=== PATIENT | male | born 1980 | race African-American/Black ===

== ENCOUNTER 2018-05-08 09:10 | Emergency (ER) | payer MEDICAID, OTHER ==
[~2018-05-08] VITALS: Wt 120.9 kg
[2018-05-08 09:12] VITALS: BP 136/68; PULSE 70; RESP 18
--- NOTE | 2018-05-08 09:39 | ERD ---
ER Documentation Chief Complaint Chief Complaint THINKS HAS PHLEM THAT CAN NOT SPIT OUT HPI 37-year-old male, previously healthy, presents the emergency department, complaining of 2 months with intermittent episodes of productive cough, sometimes of yellowish sputum sometimes white phlegm. The patient denies fevers , no chills. The patient currently smokes THC every day. He also reports history of asthma in childhood. ROS All systems reviewed and are negative except as per history of present illness. Allergies Allergies: Coded Allergies: No Known Allergy (Unverified , 05/08/18) PMhx/Soc Medical and Surgical Hx: pt denies Medical Hx, pt denies Surgical Hx Hx Alcohol Use: No Hx Substance Use: Yes (marijuana) Hx Tobacco Use: No Smoking Status: Never smoker FmHx Family History: diabetes; No coronary disease Physical Exam Vitals Vital Signs Date Temp Pulse Resp B/P (MAP) Pulse Ox O2 O2 Flow FiO2 Time Delivery Rate 05/08/18 98.1 70 18 136/68 99 09:12 (90) Physical Exam Const: No acute distress Head: Atraumatic Eyes: Normal Conjunctiva ENT: Normal External Ears, Nose and Mouth. Neck: Full range of motion. No meningismus. Resp: Clear to auscultation bilaterally Cardio: Regular rate and rhythm, no murmurs Abd: Soft, non tender, non distended. Normal bowel sounds Skin: No petechiae or rashes Back: No midline or flank tenderness Ext: No cyanosis, or edema Neur: Awake and alert Psych: Normal Mood and Affect Results 24 hrs Patient: NIKKO ECKERT : 1980 Age: 37 Sex: M [id number] DOS: 05/08/18 0939 Ordering MD: NÉSTOR ROCK MD Location: [facility] Room/Bed: PROCEDURE: XR Chest PA and Lateral CLINICAL INDICATION: Cough, short of breath TECHNIQUE: PA and Lateral views of the chest were obtained. COMPARISON: None. FINDINGS: Cardiovascular: The cardiovascular silhouette appears unremarkable. Lung Moore: The lung moore appear clear with no nodule, alveolar infiltrate, o r interstitial prominence evident. Pleural Spaces: No pneumothorax is identified and no effusion is evident. Osseous Structures: The osseous structures appear intact. Soft Tissues: The soft tissues appear generous. IMPRESSION: Unremarkable chest. Physician Lopez Date Time Electronically viewed and signed by Cleo Vargas Physician on 05/08/2018 10:02 RH/ CC: NÉSTOR ROCK MD [id number] Procedures/MDM Differential diagnosis include but not limited to: Respiratory infection bacterial/viral/fungal. Asthma, COPD, pneumonitis, allergies, GERD. Less cardiac related, aspiration pneumonia, malignancy. Physical examination and clinical presentation consistent most likely with allergic cough. During the ED course the patient remained stable, no new complaints. Treatment options and clinical impression discussed with patient who agrees with management. The patient is stable to be treated outpatient and will be discharged home. Some side effects of prescribed medications (headache, rash, nausea, vomiting, diarrhea, interactions with other medications) were reviewed. The patient needs to follow up with the primary care provider in the next 48h. If symptoms persist, worsen or new symptoms develop, then patient should return to the ED immediately. Disclaimer: Inadvertent spelling and grammatical errors are likely due to EHR/dictation software use and do not reflect on the overall quality of patient care. Also, please note that the electronic time recorded on this note does not necessarily reflect the actual time of the patient encounter. Departure Diagnosis: Primary Impression: Allergic cough Condition: Stable Additional Instructions: Thank you very much for allowing us to participate in your care. Your health and safety is our top priority at [facility]. Call your primary care doctor TOMORROW for an appointment during the next 2-4 days and bring all the information and medications prescribed. Have prescriptions filled and follow precisely the directions on the label. If the symptoms get worse and your provider is unavailable, return to the Emergency Department immediately. NÉSTOR ROCK MD May 08, 2018 09:39
[2018-05-08] MEDS ORDERED: INHA1SPA95 MC (10:44)
[2018-05-08] MEDS ORDERED: ALBU8.5H8 INH (10:44)
[2018-05-08] MEDS ORDERED: FEXO180T13 PO (10:44)
== END 2018-05-08 11:05 | disposition home or self-care (01) ==
LOC: FTE 09:10
DX: R05 Cough (principal)
CPT/HCPCS: 71046; Z7502